=== PATIENT | male | born 1985 | race African-American/Black ===

== ENCOUNTER 2017-05-08 11:41 | Emergency (ER) | payer SELFPAY | END 2017-05-08 14:08 | disposition left against medical advice (07) | LOC: M ED 11:41 | DX: S10.15XA Superficial foreign body of throat, initial encounter (principal); X58.XXXA Exposure to other specified factors, initial encounter; Y92.9 Unspecified place or not applicable; Y93.9 Activity, unspecified; Z53.21 Procedure and treatment not carried out due to patient leaving prior to being seen by health care provider ==